=== PATIENT | male | born 1990 | race African-American/Black ===

== ENCOUNTER 2017-11-14 19:43 | Emergency (ER) | payer SELFPAY ==
[~2017-11-14] VITALS: Ht 175.3 cm; Wt 76.0 kg
[2017-11-14] MEDS ORDERED: IBUPROFEN 600MG TABLET PO ONE (23:30)
[2017-11-15 00:10] VITALS: BP 124/87
== END 2017-11-15 00:10 | disposition home or self-care (01) ==
LOC: ER 20:58
DX: R07.89 Other chest pain (principal); J45.909 Unspecified asthma, uncomplicated; F17.200 Nicotine dependence, unspecified, uncomplicated; F12.10 Cannabis abuse, uncomplicated; Z98.890 Other specified postprocedural states
CPT/HCPCS: 93005; 99283